=== PATIENT | female | born 1975 | race Caucasian/White ===

== ENCOUNTER 2019-05-23 10:20 | Outpatient (REF) | payer OTHER, SELFPAY ==
--- NOTE | 2019-05-23 09:10 | PAPFT_PTH ---
PATIENT: Venita Littlejohn LOC: [facility] U#:[id number] AGE/SX: 43/F ROOM: RE05/23/[address]: Feli Espinal : 1975 BED: DIS: 05/23/2019 SPEC #: [id number] RECD: 05/23/19 13:00 STATUS: JEFFERY REMichel #: [id number] SABRINA: 05/23/19 09:[address]: Feli Espinal DEPT: [facility] Cytology RECD BY: Kirstie Mack Tissues: 1 - CX/ENDOCX FOR PAP SMEARS Procedures: PAP THIN PREP/UVM Screening HPV DNA PROBE Comments: [id number]
== END 2019-05-23 10:40 ==
LOC: NCHCN 10:20
PROVIDERS: PCP Family Medicine; Visit Provider Family Medicine
DX: Z00.00 Encounter for general adult medical examination without abnormal findings (principal); Z12.4 Encounter for screening for malignant neoplasm of cervix; Z11.51 Encounter for screening for human papillomavirus (HPV)
CPT/HCPCS: 88142; 87624

== ENCOUNTER 2019-06-03 01:18 | Outpatient (CLI) | payer OTHER, SELFPAY ==
--- NOTE | 2019-06-03 12:59 | DI.US_ITS ---
EXAM: US PELVIS TRANSVAGINAL CLINICAL HISTORY: MENORRHAGIA, N94.6. TECHNIQUE: Ultrasound performed using standard protocol. COMPARISON: PELVIS TRANSVAG from 07/07/2011 FINDINGS: Pelvic ultrasound was performed transabdominally and transvaginally. Please see the accompanying wor ksheet for measurements of pelvic structures. There is an apparent 16 millimeter in diameter anterio r uterine fibroid. The ovaries have normal follicular appearance. Endometrial stripe is about 7 mil limeters in diameter and appears homogeneous. No free fluid identified in the cul-de-sac. Limited s eldon of the kidneys is unremarkable. IMPRESSION: 16 millimeter anterior uterine fibroid. No other specific abnormality seen.
== END 2019-06-03 01:38 ==
PROVIDERS: PCP Family Medicine; Visit Provider Family Medicine
DX: N94.6 Dysmenorrhea, unspecified (principal); D25.9 Leiomyoma of uterus, unspecified
CPT/HCPCS: 76830; 76856

== ENCOUNTER 2019-06-18 07:07 | Outpatient (CLI) | payer OTHER, SELFPAY ==
[2019-06-18 09:02] LABS: HCT 42.4 % (36.0-46.0); Mean Corpuscular Hemoglobin 28.1 pg (27.0-33.0); Mean Platelet Volume 9.9 fL (8.0-11.0); Platelet Count 291 x1000/uL (130-400); RBC 4.99 m/cumm (4.00-5.20); RBC Distribution Width 12.6 % (11.7-14.6); White Blood Cell Count 7.41 k/cumm (4.4-10.8)
[2019-06-18 10:41] LABS: Hemoglobin A1C 5.6 % (4.5-6.2)
[2019-06-18 10:52] LABS: Anion Gap 8.4 mmol/L (3-11); BUN 15 mg/dL (7-18); CO2 28.6 mmol/L (21.0-32.0); CREATININE 0.71 mg/dL (0.55-1.02); Calcium 9.2 mg/dL (8.5-10.1); Calculated LDL 144 mg/dL; Chloride 103 mmol/L (98-107); Cholesterol 226 mg/dL (50-200); Glucose 100 mg/dL (70-100); HDL Cholesterol 54 mg/dL (40-60); Potassium 4.2 mmol/L (3.5-5.1); Sodium 140 mmol/L (136-145); TSH (W/Ref FT4) 1.85 uIU/mL (0.36-3.74); Triglyceride 140 mg/dL (30-150)
== END 2019-06-18 07:27 ==
PROVIDERS: PCP Family Medicine; Visit Provider Family Medicine
DX: Z00.00 Encounter for general adult medical examination without abnormal findings (principal); N94.6 Dysmenorrhea, unspecified; E66.9 Obesity, unspecified
CPT/HCPCS: 36415; 80048; 80061; 85027; 83036; 84443

== ENCOUNTER 2020-05-28 17:41 | Outpatient (CLI) | payer OTHER, SELFPAY ==
--- NOTE | 2020-05-28 09:42 | DI.RAD_ITS ---
EXAM: XR FOOT RT COMPLETE CLINICAL HISTORY: FOOT PAIN RT, M79.671, PAIN DORSAL ULNAR ASPECT AFTER SON JUMPED ON FOOT. TECHNIQUE: 2D digital imaging was performed. COMPARISON: No exams were available for comparison FINDINGS: BONES: No acute fracture is present. No bony destructive lesion is seen. An accessory navicular is n oted. JOINTS: No dislocation present. There are no significant degenerative changes. SOFT TISSUE: Normal. IMPRESSION: Unremarkable radiographs of the right foot. DATA REPOSITORY: RADIATION DOSE DELIVERED:
== END 2020-05-28 18:01 ==
PROVIDERS: PCP Family Medicine; Visit Provider Family Medicine
DX: M79.671 Pain in right foot (principal)
CPT/HCPCS: 73630

== ENCOUNTER 2021-12-08 01:36 | Outpatient (CLI) | payer OTHER, SELFPAY ==
--- NOTE | 2021-12-08 | DI.MRI_ITS ---
Exam(s) MR LUMBAR SPINE WO/W EXAM: MR LUMBAR SPINE WO/W CLINICAL HISTORY: LUMBAR BACK PAIN WITH RADICULOPATHY,RT FOOT DROP,M54.16 TECHNIQUE: Multiplanar multisequence MRI of the Lumbar Spine was performed. CONTRAST MATERIAL: IV Contrast: 18 mL of Dotarem contrast administered. COMPARISON: CR XR FOOT RT COMPLETE from 05/28/2020 FINDINGS: Bones: The last intervertebral disc space is designated the L5/S1 level for the numbering purpose of this examination. The vertebral body heights are well maintained. Alignment is satisfactory. The sig nal characteristics are unremarkable. Cord: The conus tip ends at the T12 level. It is of normal size and signal intensity. T12-L1: Minimal disc bulging.. L1-2: Moderate loss of disc height. Anteriorly projecting endplate osteophytes and minimal disc bul ging. L2-3: Mild disc bulging. L3-4: Disc height normal. Large right paracentral disc herniation with extrusion of disc material. The herniated disc material measures 12 millimeters AP by 19 millimeters cephalo caudad by 11 millime ters transverse. This causes severe central canal stenosis. There is mild right neural foraminal vladimir rowing. L4-5: Small endplate osteophytes. Mild disc bulging. Mild degenerative signal changes in the vertebra l endplates. Mild facet degenerative changes on the left. Mild ligamentous hypertrophy. No significan t neural foraminal narrowing or central canal stenosis.. L5-S1: Mild posterior disc bulging.. Soft tissues: The visualized SI joints and sacrum are well maintained. The paraspinal soft tissues ar e unremarkable. There is no evidence of suspicious enhancement. IMPRESSION: Large L4-5 disc herniation with extrusion of disc material, eccentric toward the right, causing sever e central canal stenosis.. DATA REPOSITORY:
--- NOTE | 2021-12-08 | DI.RAD_ITS ---
Exam(s) XR LUMBAR SPINE COMPLETE EXAM: XR LUMBAR SPINE COMPLETE CLINICAL HISTORY: LUMBAR BACK PAIN WITH RADICULOPATHY,? SPONDYLOLISTHESIS. TECHNIQUE: 2D digital imaging was performed. COMPARISON: No exams were available for comparison FINDINGS: BONES: No fracture or destructive lesion. Vertebral bodies are unremarkable. . DISKS: Moderate narrowing of the L1-2 disc space with anteriorly projecting osteophytes. Mild-to-mod erate narrowing of the L4-5 disc space. ALIGNMENT: Lumbar spinal alignment is within normal limits. SOFT TISSUE: Normal. IUD. IMPRESSION: Degenerative disc changes at L 1 2 and L4-5. DATA REPOSITORY: RADIATION DOSE DELIVERED:
[2021-12-08] MEDS: Normal Saline Flush 10 ML SYR IVP (14:22)
[2021-12-08] MEDS: Gadoterate meglumine 20 ML VIAL 18 ML IVP (14:24)
== END 2021-12-08 01:56 ==
PROVIDERS: PCP Family Medicine; Visit Provider Family Medicine
DX: M51.26 Other intervertebral disc displacement, lumbar region (principal)
CPT/HCPCS: 72158; 72110

== ENCOUNTER 2022-05-27 09:24 | Outpatient (REF) | payer OTHER, SELFPAY ==
[2022-05-27 15:33] LABS: Hemoglobin A1C 5.6 % (<5.7)
[2022-05-27 16:01] LABS: Calculated LDL 156 mg/dL (<100); Cholesterol 243 mg/dL (<200); HDL Cholesterol 64 mg/dL (40-60); Triglyceride 119 mg/dL (<150)
== END 2022-05-27 09:25 | disposition home or self-care (01) ==
LOC: NCHCN 09:24
PROVIDERS: PCP Family Medicine; Visit Provider Family Medicine
DX: Z00.00 Encounter for general adult medical examination without abnormal findings (principal); Z68.33 Body mass index [BMI] 33.0-33.9, adult
CPT/HCPCS: 80061; 83036

== ENCOUNTER 2022-06-03 16:51 | Outpatient (REF) | payer OTHER, SELFPAY ==
[2022-06-03 20:19] LABS: TSH (W/Ref FT4) 1.57 uIU/mL (0.36-3.74)
== END 2022-06-03 16:52 | disposition home or self-care (01) ==
LOC: NCHCN 16:51
PROVIDERS: PCP Family Medicine; Visit Provider Family Medicine
DX: R63.5 Abnormal weight gain (principal)
CPT/HCPCS: 84443

== ENCOUNTER → 2022-07-01 00:53 | Outpatient (CLI) | payer OTHER, SELFPAY ==
--- NOTE | 2022-07-01 | DI.MAMMO_ITS ---
Exam(s) MAMMO SCREENING EXAM: MAMMO SCREENING CLINICAL HISTORY: SCREENING, Z12,39. TECHNIQUE: Bilateral full field digital CC and MLO mammographic images were obtained with 3D tomosyn thesis and utilizing computer aided detection (CAD). COMPARISON: None. This is a baseline mammogram on this 46-year-old patient. FINDINGS: There are no CAD designations. There are no spiculated masses nor malignant appearing microcalcification groups. There is no significant architectural distortion nor skin thickening-retraction. IMPRESSION: No radiographic evidence of malignancy. BI-RADS Category 1 - Negative Breast Density - Category B - Scattered areas of fibroglandular density Breast density Category C or D implies that the patient has dense breast tissue. Dense breast tissue can make it harder to find cancer on a mammogram. Dense breast tissue is also associated with an incr eased risk of breast cancer. This information about the result of the mammogram report was provided to the patient to raise their awareness. Use this report when you speak with the patient about their risks for breast cancer, which includes their family history. At that time, you may recommend additional screening tests (Ultrasoun d or MRI) as these tests may add significant information. A negative radiographic report should not delay biopsy if a dominant or clinically suspicious mass is present. Up to ten percent of cancers are not identified on mammography. A negative report may reinforce clinical impression. Adenosis and dense breasts may obscure an underlying neoplasm. False positive reports average 6 to 10%. Patient will receive a letter notifying them of these results.
== END ==
PROVIDERS: PCP Family Medicine; Visit Provider Family Medicine
DX: Z12.31 Encounter for screening mammogram for malignant neoplasm of breast (principal)
CPT/HCPCS: 77063; 77067

== ENCOUNTER 2023-03-27 09:39 | Day surgery (SDC) | payer OTHER, SELFPAY ==
--- NOTE | 2023-03-26 18:12 | W.PM.DSUDISC ---
Date of service: 03/27/23 Time of Service: 11:35 Discharge Plan Disposition Patient Disposition: Home Condition: Good Discharge Details Reason For Visit: Screening colonoscopy Attending Provider: Esequiel Ellis Primary Care Provider: Feli Espinal Home Meds and New Rx's Prescriptions: Continued albuterol sulfate [ProAir HFA] 90 mcg/actuation HFA aerosol inhaler 2 puff IH Q6H PRN ibuprofen [Advil] 200 mg tablet 400 mg PO Q8H PRN Mirena 20 mcg/24 hours (8 yrs) 52 mg intrauterine device 1 device intrauterine ONCE Patient Comments: in place Rx Instructions: as a single dose Discharge Instructions Instructions: Diverticulosis (GEN), Diverticulosis Diet (GEN) Additional Instructions: Lisset, we were able to complete your colonoscopy today without any problems. The quality of your prep was excellent. You have some occasional diverticula. These are small weak spots in the colon wall, that typically accumulate with age. I find them in most patients that I do a colonoscopy on. The most common symptom that patients experience with diverticulosis occurs when they become inflamed (we then call it diverticulitis), and that symptom is classically sharp stabbing pain usually in the left lower part of the abdomen. In more severe cases, this can be treated with antibiotics, but it is usually self-limited. Based on the appearance, and distribution of years, I suspect that they do not cause you any problems at all. We have attached some general information here about diverticulosis and typical recommendations for it. Otherwise, I did not see any signs of tumors or polyps or anything worrisome. I recommend another screening colonoscopy in 10 years. 1. If tolerated, consume a soft, low fiber diet for 1-2 days. 2[address] Do not drive, drink alcohol, operate machinery, make critical decisions, or do activities that require coordination or balance for 24 hours. 3. Because air was put into your colon during the procedure, expelling air from your rectum (passing gas or farting) is normal. 4. You may not have a bowel movement for 1-3 days because of the colonoscopy prep. This is normal. 5. Go directly to the emergency room if you notice any of the following: Develop chills (warm to touch), or if you have a thermometer and your temperature is above 101 Difficulty breathing or difficultly swallowing Persistent vomiting Severe abdominal pain, other than gas cramps Severe chest pain Black, tarry stools Any bleeding ? exceeding one tablespoon 6. Call your physician if the site where your intravenous was started becomes red, swollen, painful, and warm to touch. 7. Your physician has reviewed your pre-procedure medications. Please continue to take those medications as previously ordered. You will be given specific information/education regarding any changes to your medications before leaving. Stand Alone Forms: Anesthesia Discharge InstCharles Guzman (DSU) Activity:: Activity as Tolerated Diet:: As Tolerated Discharge Orders Discharge Orders: Discharge Order (Routine); Ordered 03/26/23 Ordered By: Esequiel Ellis
--- NOTE | 2023-03-26 18:13 | W.COLOREPORT ---
Date of service: 03/27/23 Time of Service: 11:38 Colonoscopy Report Date of procedure: 03/27/23 Pre-op diagnosis general: Screening colonoscopy Post-op diagnosis procedure note: other (Diverticulosis) Procedure: Colonoscopy Surgeon: Esequiel Ellis Anesthesia Type: General:No Airway Estimated blood loss (mL): 0 Pathology: none sent Complications: None Disposition: same day Indications: Venita is 47 years old. She is here for her first screening colonoscopy Prep: Miralax/Dulcolax Procedure Start Time: 10:55 Procedure End Time: 11:16 Retraction Time: 14 Findings: Sigmoid diverticulosis Procedure Description: After the induction of monitored anesthetic care, and with the patient in left lateral decubitus position, I began by performing an external anorectal exam.? Perineum and skin were normal, as was the anal verge.? There was no evidence of external hemorrhoids.? Next, I performed a digital rectal exam.? I did not appreciate any abnormal findings.? Next, I advanced a colonoscope into the rectal vault.? I performed retroflexion.? This appeared normal.? Using insufflation, I then advanced the colonoscope beyond the rectal folds and into the sigmoid colon before advancing towards the cecum.? The quality of the prep was excellent.? There were occasional sigmoid diverticula. The scope was noted to be in the cecum by identification of the ileocecal valve and appendiceal orifice.? I then began withdrawing the colonoscope using repeated irrigation as necessary for full evaluation of the colonic mucosa. ?Once the scope was withdrawn to the level of the rectum, great care was taken to examine portions of the rectal folds.? Finally, the scope was withdrawn and the patient was brought to the same-day surgery recovery unit as the anesthetic wore off. ?The findings and instructions were shared with the patient prior to discharge.
--- NOTE | 2023-03-27 06:23 | ANES.PREOP_ITS ---
General Info Date of Service Date Performed: 03/27/23 Height: 5 ft 5 in Weight: 97.522 kg Body Mass Index (BMI): 35.7 Surgical Procedure: Operation Date: 03/27/23 11:20 Proposed Procedure Side Surgeon nadeen Ellis MD Meds Allergies and Home Medications Allergies Allergy/AdvReac Type Severity Reaction Status Date / Time cat dander Allergy Unknown Verified 03/27/23 10:12 tree and shrub pollen Allergy Unknown Verified 03/27/23 10:12 Home Medication Medication Instructions Recorded albuterol sulfate 90 mcg/actuation 2 puff inhalation Q6H PRN 07/15/19 aerosol inhaler (ProAir HFA) ibuprofen 200 mg tablet (Advil) 400 mg PO Q8H PRN 07/16/19 levonorgestrel 21 mcg/24 hours (8 1 device intrauterine ONCE 07/25/22 yrs) 52 mg intrauterine device (Mirena) Current Visit Medications: Current Medications Generic Name Dose Route Start Last Admin Trade Name Freq PRN Reason Stop Dose Admin Hyoscyamine Sulfate 0.125 mg 03/26/23 18:14 Hyoscyamine 0.125 Mg Sl/Oral/Chew SL 04/25/23 18:13 DIRECTED PRN Ringer's Solution 1,000 mls @ 80 mls/hr 03/27/23 06:00 IV 03/27/23 23:59 [facility] IV Miscellaneous Supplies 1 each 03/27/23 06:00 Iv Access IV 03/27/23 23:59 DIRECTED RONALD Ondansetron HCl 4 mg 03/26/23 18:14 Ondansetron 4 Mg/2 Ml Vial IVP 04/25/23 18:13 Q4H PRN PRN Nausea / Vomiting Sodium Chloride 0 ml 03/27/23 06:00 Normal Saline Flush 10 Ml Syr IV 03/27/23 23:59 PRN PRN Sodium Chloride 0 ml 03/27/23 06:00 Normal Saline 10 Ml Vial IJ 03/27/23 23:59 DIRECTED PRN Sterile Water 0 ml 03/27/23 06:00 Water,Injection,Sterile 10 Ml Vial IJ 03/27/23 23:59 DIRECTED PRN PFSH Active Problems Active Problems: Problem Status Onset Code Asthma, mild intermittent J45.20 Lumbar radiculopathy M54.16 Weight gain R63.5 Screening for colon cancer Z12.11 Abnormal uterine bleeding N93.9 Fibroid uterus D25.9 Medical History Medical History Allergic rhinitis Hx of ectopic fallopian tube ligation on Left Hyperlipidemia Lactose intolerance Menorrhagia Obesity Tinea pedis Surgical History Surgical History (Updated 03/27/23 @ 10:14 by Ирина Darby) History of back surgery L4-L5 Hx of section x 2 Hx of nasal septoplasty Tobacco Smoking/Tobacco Use Status: Never Alcohol Alcohol Intake: current Alcohol intake frequency: holidays/special occasions only Substance Use Substance use type: does not use Vital Signs and Lab Results Vital Signs Most Recent Vital Signs in EMR: Temp Pulse Resp BP Pulse Ox 36.6 C 55 L 16 134/87 98 03/27/23 10:16 03/27/23 10:16 03/27/23 10:16 03/27/23 10:16 03/27/23 10:16 Lab Results Blood Type / Crossmatch: No Data to Display Complete Blood Count: No Data to Display Complete Metabolic Panel: No Data to Display Liver Function Panel: No Data to Display Coagulation Panel: No Data to Display Cardiac Panel: No Data to Display Arterial Blood Gas: No Data to Display Venous Blood Gas: No Data to Display Pancreas Panel: No Data to Display Thyroid Panel: No Data to Display Infectious Disease: No Data to Display Blood Cultures: No Data to Display Toxicology Panel: No Data to Display Panel: No Data to Display Imaging and Studies Imaging and Studies Study information below may be from another EMR and interpreted by another provider. Please see original notes in EMR for more complete details. Echocardiogram Summary: 09/11: LVEF 65%, mild MR/TR. Anesthesia Assessment and Plan Anesthesia History Personal History: No History of Anesthesia Complications Family History: No Family History of Anesthesia Complications Exercise Tolerance Exercise Tolerance: Metabolic Equivalents>4 Cardiac & Pulmonary Exam Cardiac Exam: Normal S1/S2 Heart Sounds Pulmonary Exam: Clear Bilateral Breath Sounds Implantable Cardiac Device Does patient have a Pacemaker or an ICD?: No Airway Exam Known Difficult Airway: No Mallampati Class: 3 Mouth Opening: Narrow (< 3cm) Thyromental Distance: Greater than 3 cm Neck Range of Motion: Full ROM Neck Circumference: Normal Teeth Condition: Normal Dentition ASA Classification ASA Score: ASA 2 Emergency Case?: No NPO Status NPO Status: NPO Clears >2 hours, Solids >8 hours Status Status: Negative HCG Anesthesia Plan Resuscitation Status: Full Code Anesthesia Technique: General Anesthesia Airway Planned: Natural Airway Monitors Used: Standard Monitors Preoperative Comments:: 47 yo female for colo. Sig PMHx: asthma (albuterol cold/allergies), back pain, never smoker, occ EtOH.
[2023-03-27 10:16] VITALS: BP 134/87; PULSE 55; RESP 16; TEMP 36.6; O2SAT 98
[2023-03-27 10:31] VITALS: BMI 35.7
[2023-03-27] MEDS: Lactated Ringers 1,000 ML 80 ML IV (10:35)
[2023-03-27 11:22] VITALS: BP 124/77; PULSE 52; RESP 16; TEMP 36.2; O2SAT 98
--- NOTE | 2023-03-27 11:29 | W.ANESPOSTOP ---
Postoperative Evaluation Date, Time and Location Date Performed: 03/27/23 Time Performed: 11:30 Patient Location: Day Surgery Unit Vital Signs Most Recent Imported Vital Signs: Most Recent Vital Signs Temp Pulse Resp BP Pulse Ox 36.2 C L 52 L 16 124/77 98 03/27/23 11:22 03/27/23 11:22 03/27/23 11:22 03/27/23 11:22 03/27/23 11:22 Pain Score Most Recent Pain Score: Most Recent Pain Score Pain Level 0 03/27/23 11:22 Assessment Mental Status: Awake (Alert & Oriented to Patient Baseline) Airway and Respiratory Function: Patent airway with normal (patient baseline) respiratory exam Cardiovascular Function: Hemodynamically Stable Hydration Status: Adequately Hydrated Nausea & Vomiting: No Nausea or Vomiting Pain: Pt. Denies Any Pain Peripheral Nerve Block: Patient did not receive a nerve block
[2023-03-27 11:52] VITALS: BP 129/80; PULSE 48; RESP 16; TEMP 36; O2SAT 98
== END 2023-03-27 12:07 | disposition home or self-care (01) ==
PROVIDERS: PCP Family Medicine; Visit Provider Surgery
PROC: 0DJD8ZZ Inspection of Lower Intestinal Tract, Via Natural or Artificial Opening Endoscopic (ICD-10-PCS; CPT 45378; principal; 2023-03-27 11:15)
DX: Z12.11 Encounter for screening for malignant neoplasm of colon (principal)
CPT/HCPCS: 45378; 81025; J2704